=== PATIENT | male | born 1965 | race Caucasian/White ===

== ENCOUNTER 2016-10-26 16:54 | Emergency (ER) | payer OTHER ==
[~2016-10-26] VITALS: Ht 190.5 cm; Wt 95.3 kg
--- NOTE | 2016-10-26 17:14 | ED.ADGEN ---
Past History Past Medical History: CAD Adult General Chief Complaint Chief Complaint head injury HPI HPI Patient is a 51 year old male who presents with scalp laceration and face contusion after he "bumped" his head. Pt presents from local [facility]. Unsure of last tetanus immunization. Pt take plavix for previous heart stents. Denies LOC, no neck or back pain, no extremity pain. Review of Systems Review of Systems Constitutional: Denies fever or chills [] Eyes: Denies change in visual acuity, redness, or eye pain [] HENT: Denies nasal congestion or sore throat [] Respiratory: Denies cough or shortness of breath [] Cardiovascular: Denies chest pain GI: Denies abdominal pain, nausea, vomiting, bloody stools or diarrhea [] : Denies dysuria or hematuria [] Musculoskeletal: Denies back pain or joint pain [] Integument: per hpi Neurologic: Denies headache, focal weakness or sensory changes [] Current Medications Current Medications Current Medications Medications (Trade) Dose Ordered Sig/Christine Start Time Stop Time Status Last Admin Dose Admin Diphtheria/ Tetanus/Acell Pertussis (Boostrix) 0.5 ml ONCE ONCE 10/26/16 17:45 10/26/16 17:46 DC 10/26/16 17:41 0.5 ML Lidocaine/ Epinephrine (Xylocaine 1%-Epi 1:100,000) 20 ml 1X ONCE 10/26/16 17:45 10/26/16 17:46 DC Allergies Allergies Allergies Coded Allergies Type Severity Reaction Last Updated Verified codeine Allergy Intermediate Hives 10/26/16 Yes Physical Exam Physical Exam Constitutional: Well developed, well nourished, no acute distress, non-toxic appearance. [] HENT: Normocephalic, large gaping left anterior proximal scalp laceration with moderate hemostasis. left lower eye mild edema with bruising Eyes: PERRLA, EOMI, conjunctiva normal, no discharge. [] Neck: Normal range of motion, no tenderness, supple, no stridor. [] Cardiovascular:Heart rate regular with regular rhythm Lungs & Thorax: no respiratory distress Abdomen: Bowel sounds normal, soft, no tenderness, no masses, no pulsatile masses. [] Skin: Warm, dry, no erythema, no rash. [] Back: No tenderness, no CVA tenderness. [] Extremities: No tenderness, no cyanosis, no clubbing, ROM intact, no edema. [] Neurologic: Alert and oriented X 3, normal motor function, normal sensory function, no focal deficits noted. [] Psychologic: Affect normal, judgement normal, mood normal. [] Current Patient Data Vital Signs Vital Signs Date Time Temp Pulse Resp B/P Pulse Ox O2 Delivery O2 Flow Rate FiO2 10/26/16 17:05 97.9 88 18 98 Room Air EKG EKG [] Radiology/Procedures Radiology/Procedures Indication: scalp lac Procedure: The patient was placed in the appropriate position and anesthesia around the lidocain1% with epi . The area was then irrigated with shurcleanse. The laceration was 4 rajiv. Total repaired wound length: 4 cm. Other Items: none The patient tolerated the procedure well . Complications: none .ct head/face PROCEDURE CT scan of the head without contrast 10/26/2016 HISTORY Laceration on head above right eye. The patient fell and hit head. TECHNIQUE Unenhanced contiguous, 5 millimeter axial sections were obtained through the head. One or more of the following individualized dose reduction techniques were utilized for this study: 1. Automated exposure control. 2. Adjustment of the mA and/or kV according to patient size. 3. Use of iterative reconstruction technique. FINDINGS The ventricles and sulci are within normal limits in size and configuration. No acute parenchymal abnormality is seen. No extra-axial fluid collection is noted. No skull fracture is seen. Soft tissue swelling is seen involving the left frontal scalp. IMPRESSION No acute intracranial abnormality is seen. PROCEDURE CT scan of the facial bones without contrast 10/26/2016 HISTORY Fall with facial injury. Laceration above right eye. TECHNIQUE Unenhanced contiguous, 0.625 millimeter axial sections were obtained through the facial bones and orbits. 3 millimeter reconstructed sagittal, axial and coronal images were obtained. One or more of the following individualized dose reduction techniques were utilized for this study: 1. Automated exposure control. 2. Adjustment of the mA and/or kV according to patient size. 3. Use of iterative reconstruction technique. FINDINGS An anterior plate and bone screws is seen involving the anterior wall of the right maxillary sinus. A plate and bone screws is seen involving the left mandibular condyle No acute facial bone fracture is seen. Both orbits are intact. The paranasal sinuses are essentially clear. No air-fluid level is seen. IMPRESSION No acute facial bone or orbital fracture is seen. Electronically signed by: Quentin Lazo MD (Oct 26, 2016 18:04:19) Course & Med Decision Making Course & Med Decision Making Pertinent Labs and Imaging studies reviewed. (See chart for details) pt's tdap udpated, scalp lac repaired, CT head and face ordered. Neg scans. rajiv out in 10 days. return precautions given. Final Impression Final Impression Head injury Scalp lac[] Problems: Dragon Disclaimer Dragon Disclaimer This electronic medical record was generated, in whole or in part, using a voice recognition dictation system. MAGALYS ARIAS MD Oct 26, 2016 17:14
[2016-10-26] MEDS ORDERED: DIPHTH,PERTUSS(ACELL),TET TOX 0.5 ML DISP.SYRIN. VAX IM ONE (17:45)
[2016-10-26] MEDS ORDERED: LIDOCAINE 1%/EPI 1:100,000 20 ML VIAL. IJ ONE (17:45)
[2016-10-26 18:00] VITALS: BP 139/56
--- NOTE | 2016-10-26 18:05 | RAD ---
PROCEDURE CT scan of the head without contrast 10/26/2016 HISTORY Laceration on head above right eye. The patient fell and hit head. TECHNIQUE Unenhanced contiguous, 5 millimeter axial sections were obtained through the head. One or more of the following individualized dose reduction techniques were utilized for this study: 1. Automated exposure control. 2. Adjustment of the mA and/or kV according to patient size. 3. Use of iterative reconstruction technique. FINDINGS The ventricles and sulci are within normal limits in size and configuration. No acute parenchymal abnormality is seen. No extra-axial fluid collection is noted. No skull fracture is seen. Soft tissue swelling is seen involving the left frontal scalp. IMPRESSION No acute intracranial abnormality is seen. PROCEDURE CT scan of the facial bones without contrast 10/26/2016 HISTORY Fall with facial injury. Laceration above right eye. TECHNIQUE Unenhanced contiguous, 0.625 millimeter axial sections were obtained through the facial bones and orbits. 3 millimeter reconstructed sagittal, axial and coronal images were obtained. One or more of the following individualized dose reduction techniques were utilized for this study: 1. Automated exposure control. 2. Adjustment of the mA and/or kV according to patient size. 3. Use of iterative reconstruction technique. FINDINGS An anterior plate and bone screws is seen involving the anterior wall of the right maxillary sinus. A plate and bone screws is seen involving the left mandibular condyle No acute facial bone fracture is seen. Both orbits are intact. The paranasal sinuses are essentially clear. No air-fluid level is seen. IMPRESSION No acute facial bone or orbital fracture is seen. Electronically signed by: Quentin Lazo MD (Oct 26, 2016 18:04:19)
== END 2016-10-26 18:15 | disposition home or self-care (01) ==
LOC: ER 16:54 → EEVIPCON 16:54 → ER 18:15
DX: S01.01XA Laceration without foreign body of scalp, initial encounter (principal); S00.83XA Contusion of other part of head, initial encounter; I25.10 Atherosclerotic heart disease of native coronary artery without angina pectoris; Z95.5 Presence of coronary angioplasty implant and graft; Z79.02 Long term (current) use of antithrombotics/antiplatelets; Z88.5 Allergy status to narcotic agent; W22.8XXA Striking against or struck by other objects, initial encounter; Y93.89 Activity, other specified; Y99.0 Civilian activity done for income or pay; Y92.89 Other specified places as the place of occurrence of the external cause
CPT/HCPCS: 12002; 70450; 70486; 90471; 90715; 99284-25